=== PATIENT | female | born 1960 | race Caucasian/White ===

== ENCOUNTER 2025-04-08 14:44 | Emergency (ER) | payer MEDICARE, SELFPAY ==
[2025-04-08] VITALS (7 sets, daily range): BP systolic 141–173; BP diastolic 84–103; PULSE 72–77; RESP 16–18; TEMP 36.9; O2SAT 95–100; BMI 26.6
--- NOTE | 2025-04-08 14:46 | CTR_ITS ---
PROCEDURE INFORMATION: Exam: CT Head Without Contrast Exam date and time: 04/08/2025 3:44 PM Age: 64 years old Clinical indication: Injury or trauma; Fall; Blunt trauma (contusions or hematomas); Without loss of consciousness; Injury date: 04-08-25; Injury details: Fell off of horse; Pain in neck, did not hit head TECHNIQUE: Imaging protocol: Computed tomography of the head without contrast. Radiation optimization: All CT scans at this facility use at least one of these dose optimization techniques: automated exposure control; mA and/or kV adjustment per patient size (includes targeted exams where dose is matched to clinical indication); or iterative reconstruction. COMPARISON: No relevant prior studies available. RADIATION DOSE METRICS: Total DLP (mGy-cm): 1069.68 FINDINGS: Brain: There are mild periventricular and subcortical lucencies consistent with chronic microvascular ischemic changes.The hendrix-white differentiation is maintained. No hemorrhage. No edema. Cerebral ventricles: No ventriculomegaly. Paranasal sinuses: Visualized sinuses are unremarkable. No fluid levels. Mastoid air cells: Visualized mastoid air cells are well aerated. Bones: Unremarkable. No acute fracture. Soft tissues: Unremarkable. CT/CT head wo con* [id number] IMPRESSION: No acute intracranial abnormality. Chronic microvascular ischemic changes.
--- NOTE | 2025-04-08 14:46 | CTR_ITS ---
PROCEDURE INFORMATION: Exam: CT Cervical Spine Without Contrast Exam date and time: 04/08/2025 3:48 PM Age: 64 years old Clinical indication: Injury or trauma; Fall; Blunt trauma; Injury date: 04-08-25; Injury details: Fell off of horse today; Neck pain TECHNIQUE: Imaging protocol: Computed tomography of the cervical spine without contrast. Radiation optimization: All CT scans at this facility use at least one of these dose optimization techniques: automated exposure control; mA and/or kV adjustment per patient size (includes targeted exams where dose is matched to clinical indication); or iterative reconstruction. COMPARISON: CT head wo con* [id number] 04/08/2025 3:44 PM RADIATION DOSE METRICS: Total DLP (mGy-cm): 194.07 FINDINGS: Bones: Multilevel degenerative disc disease.There is multilevel uncovertebral and facet hypertrophy with neural foramina narrowing. No acute fracture. Lungs: Lung apices are normal. Soft tissues: Unremarkable. CT/CT cervical spin wo con* [id number] IMPRESSION: No acute cervical spine fracture.
--- NOTE | 2025-04-08 14:46 | XR_ITS ---
WS: [id number] Exam: XR chest 1V portable [id number] Date/Time of Exam: 04/08/2025 3:04 PM Reason For Exam: Trauma The lungs are fully inflated and clear. Normal cardiomediastinal silhouette. No pleural effusions. Displaced midshaft fracture of the LEFT humerus with the bucf-je-epsh apposition. No other bony injury. XR/XR chest 1V portable [id number] IMPRESSION: 1. No acute cardiopulmonary finding. 2. Acute midshaft fracture of the LEFT humerus with heqr-az-exhn apposition at the fracture site.
--- NOTE | 2025-04-08 14:55 | W.ED.GENADLT ---
HPI - General Adult General: Chief complaint: Extremity Injury, Upper Stated complaint: Fell from Horse Time Seen by Provider: 04/08/25 14:45 History of Present Illness: 64-year-old female presents to the emergency room after a fall from horse. States she has severe pain in her left upper arm. She fell she does not recall everything that happened but she was able to stand up and walk immediately after falling. No neck pain she does not believe she fully lost consciousness. She is complaining of some mild discomfort at her left hip. She denies any chest or abdominal pain. Patient has an obvious deformity of the left humerus Associated symptoms: Deny chest pain, dyspnea or rash Related Data Home Medications ?Medication ?Instructions ?Recorded ?Confirmed duloxetine 20 mg capsule,delayed 20 mg PO DAILY 04/08/25 04/08/25 release meloxicam 15 mg tablet 15 mg PO QPM 04/08/25 04/08/25 omeprazole 20 mg capsule,delayed 20 mg PO DAILY 04/08/25 04/08/25 release prednisone 10 mg tablet 10 mg PO DAILY 04/08/25 04/08/25 tolterodine 2 mg capsule,extended 2 mg PO DAILY 04/08/25 04/08/25 release 24 hr zolpidem 5 mg tablet 5 mg PO BEDTIME 04/08/25 04/08/25 Previous Rx's ?Medication ?Instructions ?Recorded hydrocodone 5 mg-acetaminophen 325 1 tab PO Q6H PRN pain #20 tabs 04/08/25 mg tablet Allergies Allergy/AdvReac Type Severity Reaction Status Date / Time codeine Allergy ADR-Abdominal Verified 04/08/25 14:50 Pain Sulfa (Sulfonamide Allergy ALGY-Conges Verified 04/08/25 14:50 Antibiotics) sasha Review of Systems Const: Denies: fever(s) or chills Card: Denies: chest pain Resp: Denies: dyspnea GI: Denies: abdominal pain : Denies: dysuria, urinary frequency or urinary urgency Musc: Denies: neck pain or back pain Skin/Breast: Denies: rash Physical Exam Const: GENERAL APPEARANCE: cooperative ORIENTATION/CONSCIOUSNESS: Yes awake, Yes oriented to person, Yes oriented to place and Yes oriented to time HENMT: COMMON NORMALS: normocephalic, atraumatic and hearing grossly normal bilaterally HEAD & SCALP: normocephalic and atraumatic Resp: COMMON NORMALS: normal respiratory effort, No retractions, No use of accessory muscles and clear to auscultation bilaterally AUSCULTATION: clear to auscultation bilaterally Cardio: COMMON NORMALS: regular rate, regular rhythm and No murmurs present (Cardio) RATE: regular rate RHYTHM: regular rhythm GI: COMMON NORMALS: Soft to palpation and No hepatosplenomegaly present AUSCULTATION: Yes normoactive bowel sounds PALPATION: Yes Soft to palpation, No Tenderness to palpation present (GI), No Guarding due to palpation present (GI) and Yes No hepatosplenomegaly present Extremity: OTHER: Obvious deformity of the left mid proximal humerus. Left upper extremity is neurovascularly intact good pulses. Normal sensation able to move at the wrist and the fingers. No laceration in the upper arm no signs of an open fracture Neuro: SENSORIUM/ORIENTATION: Yes oriented to person, Yes oriented to place and Yes oriented to time Skin: COMMON NORMALS: no rashes or lesions noted GENERAL SKIN EXAM: no rashes or lesions noted Procedures Orthopedic Fracture Reduction Fracture #1: Time Out Performed: Yes Side: left Fracture Reduction Location: humerus Technique: direct manipulation Post Reduction X-rays Demonstrate: acceptable reduction Post-reduction neuro exam: intact Post-reduction vascular exam: intact Splint Applied: Yes Patient Tolerated Procedure: well and no complications Procedural Sedation Indication: fracture/dislocation reduction ASA Class: I Preparation: conveyor monitor applied, pulse oximeter, supplemental O2 applied, suction/airway equipment at bedside and IV secured Fentanyl: IV Fentanyl dose (mcg): 50 IV Etomidate dose (mg): 20 Additional Comments: Started procedure time 1716 . End procedure time 1732. Course Vital Signs: Vital signs: Vital Signs Temperature 98.4 F 04/08/25 14:46 Pulse Rate 75 04/08/25 18:15 Respiratory Rate 16 04/08/25 18:15 Blood Pressure 141/84 04/08/25 18:15 Pulse Oximetry 95 04/08/25 18:15 Oxygen Delivery Me thod Room Air 04/08/25 17:33 [facility] - General Adult Medical Decision Making Conscious sedation with reduction of angulation of fracture of the humerus neurovascular intact after reduction see notes. Discussed Dr. Spangler who is on-call he recommended coaptation splint with sling and follow-up in orthopedic office. Referred to case management with pain medications. Lab Data 04/08/25 15:26 04/08/25 15:26 Radiology Impressions Cervical Spine CT 04/08/25 14:46 IMPRESSION: No acute cervical spine fracture. Chest X-Ray 04/08/25 14:46 IMPRESSION: 1. No acute cardiopulmonary finding. 2. Acute midshaft fracture of the LEFT humerus with tono-ib-xicr apposition at the fracture site. Head CT 04/08/25 14:46 IMPRESSION: No acute intracranial abnormality. Chronic microvascular ischemic changes. Humerus X-Ray 04/08/25 17:15 IMPRESSION: Closed reduction and splint placement as described based on 1 lateral view. Laboratory Results WBC 12.32 10^3/uL (3.29-11.43) H 04/08/25 15: RBC 3.88 10^6/uL (3.85-5.65) 04/08/25 15: Hgb 11.60 g/dL (11.27-16.99) 04/08/25 15: Hct 37.0 % (36-47) 04/08/25 15: MCV 95.4 fl (85-98) 04/08/25 15: MCH 29.9 pg (27-33) 04/08/25 15: MCHC 31.4 g/dL (30-55) 04/08/25 15: RDW 13.4 % (12.1-15.1) 04/08/25 15: Plt Count 274 10^3/cmm (157-399) 04/08/25 15: MPV 9.5 fL (7.4-10.4) 04/08/25 15: Neut % (Auto) 82.1 % 04/08/25 15: Lymph % (Auto) 11.0 % 04/08/25 15: [place] % (Auto) 5.0 % 04/08/25 15: Eos % (Auto) 0.2 % 04/08/25 15: Baso % (Auto) 0.5 % 04/08/25 15: Neut # (Auto) 10.11 10^3/uL (1.8-7.7) H 04/08/25 15: Lymph # (Auto) 1.4 10^3/uL (0.8-4.8) 04/08/25 15: [place] # (Auto) 0.6 10^3/uL (0.2-0.9) 04/08/25 15:26 Eos # (Auto) 0.0 10^3/uL (0.0-0.8) 04/08/25 15:26 Baso # (Auto) 0.1 10^3/uL (0.0-0.1) 04/08/25 15:26 Nucleated RBC % (auto) 0 % 04/08/25 15: Nucleated RBCs # 0.0 /100WBC 04/08/25 15:26 Sodium 139 mmol/L (136-145) 04/08/25 15:26 Potassium 3.8 mmol/L (3.5-5.1) 04/08/25 15: Chloride 102 mmol/L (98-107) 04/08/25 15: Carbon Dioxide 21 mmol/L (22-29) L 04/08/25 15:26 Anion Gap 19.8 (5-19) H 04/08/25 15:26 BUN 23 mg/dL (8-23) 04/08/25 15:26 Creatinine 1.1 mg/dL (0.5-0.9) H 04/08/25 15:26 GFR Calculation 49.7 mL/min (90-130) L 04/08/25 15: Glucose 110 mg/dL (65-115) 04/08/25 15:26 Calculated Osmolality 292 mOsm/kg (285-295) 04/08/25 15: Calcium 9.6 mg/dL (8.5-10.5) 04/08/25 15: Total Bilirubin 0.2 mg/dL (0.15-1.2) 04/08/25 15:26 AST 32 U/L (0-32) 04/08/25 15:26 ALT 20 U/L (0-33) 04/08/25 15:26 Alkaline Phosphatase 83 U/L (35-105) 04/08/25 15:26 Total Protein 8.1 g/dL (6.6-8.7) 04/08/25 15:26 Albumin 4.5 g/dL (3.5-5.2) 04/08/25 15: Globulin 3.6 g/dL (1.3-4.6) 04/08/25 15:26 All radiology interpretation(s) finalized by discharge Discharge Plan Discharge Patient Disposition: Home Clinical Impression: Fracture of humerus Qualifiers: Encounter type: initial encounter Humerus Location: shaft Fracture type: closed Fracture morphology: transverse Fracture alignment: displaced Laterality: left Qualified Code(s): S42.322A - Displaced transverse fracture of shaft of humerus, left arm, initial encounter for closed fracture Condition: Stable Prescriptions: New hydrocodone-acetaminophen 5-325 mg tablet 1 tab PO Q6H PRN (Reason: pain) Qty: 20 0RF No Action tolterodine 2 mg capsule,extended release 24hr 2 mg PO DAILY prednisone 10 mg tablet 10 mg PO DAILY meloxicam 15 mg tablet 15 mg PO QPM omeprazole 20 mg capsule,delayed release(DR/EC) 20 mg PO DAILY zolpidem 5 mg tablet 5 mg PO BEDTIME duloxetine 20 mg capsule,delayed release(DR/EC) 20 mg PO DAILY Discharge Orders: Discharge ED (Routine); Ordered 04/08/25 Ordered By: Jose Ramon Olivier Patient Instructions: Opioid Safety, Pain Management, Patient Portal & [place] Instructions Activity Restrictions/Additional Instructions: Thank you for choosing [facility] for your healthcare needs today. It is very important that you follow up as instructed or that you return to the Emergency Department should you have concerns or if your condition changes or worsens in any way. Emergency department visits are focused on emergent conditions, in some cases you may require further evaluation on an outpatient basis. You were seen in the emergency room with complaints of left arm pain after a fall you did have a fracture of your humerus this likely will need further treatment by orthopedics. We conferred with orthopedics the fracture was reduced and placed in a splint you should leave the arm in the splint and the sling until you see the orthopedic physician. You are given pain medications to discharge home on if you have uncontrolled pain or further problems return to the emergency room. (Please note that included in your discharge packet is information concerning opioid safety and pain management. This information is given to all patients were discharged from the ER regardless of their discharge diagnosis or the medicines they usually take or are prescribed.) Print Language: Ghanaian Coding Level of Care Code ED Rivet Flunky for Madelyn Ellison
[2025-04-08] MEDS: fentaNYL 50 mcg/mL INJ 2mL IVP ×2 (15:01→17:34)
--- NOTE | 2025-04-08 15:09 | XR_ITS ---
WS: [id number] Exam: [place] [id number] Date/Time of Exam: 04/08/2025 3:09 PM Reason For Exam: trauma DLP: There is a displaced midshaft fracture of the LEFT humerus. There is significant medial angulation of the distal fragment with [id number]-dk-[id number] apposition. An additional hairline fracture nondisplaced is noted in the upper humeral metaphysis. Deformity of the soft tissues. XR/[place] [id number] IMPRESSION: 1. Displaced angulated midshaft fracture of the LEFT humerus. Additional nondis placed hairline fracture of the upper metaphysis of the humerus.
[2025-04-08 15:48] LABS: Hematocrit 37.0 % (36-47); Hemoglobin 11.60 g/dL (11.27-16.99); Mean Corpuscular HGB Conc 31.4 g/dL (30-55); Mean Corpuscular Hemoglobin 29.9 pg (27-33); Mean Corpuscular Volume 95.4 fl (85-98); Nucleated Red Blood Cells % 0 %; Platelet Count 274 10^3/cmm (157-399); Red Blood Count 3.88 10^6/uL (3.85-5.65); White Blood Count 12.32 10^3/uL (3.29-11.43)
[2025-04-08 16:05] LABS: Alanine Aminotransferase 20 U/L (0-33); Albumin Level 4.5 g/dL (3.5-5.2); Alkaline Phosphatase 83 U/L (35-105); Anion Gap 19.8 (5-19); Aspartate Amino Transferase 32 U/L (0-32); Blood Urea Nitrogen 23 mg/dL (8-23); Calcium 9.6 mg/dL (8.5-10.5); Carbon Dioxide 21 mmol/L (22-29); Chloride 102 mmol/L (98-107); Creatinine Clr Calc Pharmacy 48.4003; Globulin 3.6 g/dL (1.3-4.6); Glucose 110 mg/dL (65-115); Osmolality Calculated 292 mOsm/kg (285-295); Potassium 3.8 mmol/L (3.5-5.1); Sodium 139 mmol/L (136-145); Total Protein 8.1 g/dL (6.6-8.7)
--- NOTE | 2025-04-08 17:15 | XRR_ITS ---
PROCEDURE INFORMATION: Exam: XR Left Humerus Exam date and time: 04/08/2025 5:16 PM Age: 64 years old Clinical indication: Other: Post reduction TECHNIQUE: Imaging protocol: Radiologic exam of the left humerus. Views: 2 or more views. Total images: 457 COMPARISON: 1. [place] [id number] 04/08/2025 3:[address] cervical spin wo con* [id number] 04/08/2025 3:48 PM 3. CR XR chest 1V portable [id number] 04/08/2025 3:06 PM FINDINGS: Bones/joints: Lateral projection (only) demonstrates left mid humeral shaft short oblique fracture with improved alignment and decreased angulation status post closed reduction and splint placement. Soft tissues: Soft tissues are for the most part obscured by the splint. XR/[place] [id number] IMPRESSION: Closed reduction and splint placement as described based on 1 lateral view.
[2025-04-08] MEDS: etomidate 2 mg/mL INJ SDV 10 mL 10 MG IVP (17:18)
[2025-04-08] MEDS: ondansetron 2 mg/ML SDV 2 mL 4 MG IVP (17:32)
[2025-04-08] MEDS: HYDROcodone-acetaminophen 5-325 mg Tablet 2 TAB PO (18:32)
--- NOTE | 2025-04-09 07:23 | DCPLANNER ---
Message sent to Ortho
== END 2025-04-08 18:17 | disposition home or self-care (01) ==
PROVIDERS: Emergency Provider Family Medicine
DX: S42.322A Displaced transverse fracture of shaft of humerus, left arm, initial encounter for closed fracture (principal); V80.010A Animal-rider injured by fall from or being thrown from horse in noncollision accident, initial encounter
CPT/HCPCS: 24505; 29125; 36415; 70450; 71045; 72125; 73060; 80053; 85025; 94799; 96361; 96374; 96375; 99152; 99285; 99291; A4565; J0780; J2405; J3010; J3490; J7050; J9999

== ENCOUNTER → 2025-04-11 11:15 | Outpatient (BNVA) | payer MEDICARE, SELFPAY | PROVIDERS: Visit Provider Student in an Organized Health Care Education/Training Program | DX: S42.302A Unspecified fracture of shaft of humerus, left arm, initial encounter for closed fracture (principal); V80.010A Animal-rider injured by fall from or being thrown from horse in noncollision accident, initial encounter | CPT/HCPCS: 73060; 99204 ==

== ENCOUNTER → 2025-04-16 10:06 | Outpatient (BNVA) | payer MEDICARE, SELFPAY | PROVIDERS: Visit Provider Student in an Organized Health Care Education/Training Program | DX: S42.302A Unspecified fracture of shaft of humerus, left arm, initial encounter for closed fracture (principal); X58.XXXA Exposure to other specified factors, initial encounter; Z46.89 Encounter for fitting and adjustment of other specified devices; S42.322D Displaced transverse fracture of shaft of humerus, left arm, subsequent encounter for fracture with routine healing; X58.XXXD Exposure to other specified factors, subsequent encounter | CPT/HCPCS: 73060 ==

== ENCOUNTER 2025-04-16 13:51 | Outpatient (CLI) | payer MEDICARE, SELFPAY | END 2025-04-16 13:52 | disposition home or self-care (01) | LOC: SPT 13:52 | PROVIDERS: Visit Provider Student in an Organized Health Care Education/Training Program | DX: Z46.89 Encounter for fitting and adjustment of other specified devices (principal); S42.322D Displaced transverse fracture of shaft of humerus, left arm, subsequent encounter for fracture with routine healing; X58.XXXD Exposure to other specified factors, subsequent encounter | CPT/HCPCS: L3980 ==

== ENCOUNTER → 2025-04-30 14:13 | Outpatient (BNVA) | payer MEDICARE, SELFPAY | PROVIDERS: Visit Provider Student in an Organized Health Care Education/Training Program | DX: S42.302A Unspecified fracture of shaft of humerus, left arm, initial encounter for closed fracture (principal); X58.XXXA Exposure to other specified factors, initial encounter | CPT/HCPCS: 73060; 99213 ==

== ENCOUNTER → 2025-05-21 14:04 | Outpatient (BNVA) | payer MEDICARE, SELFPAY | PROVIDERS: PCP Family Medicine; Visit Provider Student in an Organized Health Care Education/Training Program | DX: S42.302A Unspecified fracture of shaft of humerus, left arm, initial encounter for closed fracture (principal); X58.XXXA Exposure to other specified factors, initial encounter | CPT/HCPCS: 73060; 99214 ==

== ENCOUNTER 2025-06-10 06:20 | Day surgery (SDC) | payer MEDICARE, SELFPAY ==
[2025-06-10] VITALS (19 sets, daily range): BP systolic 86–134; BP diastolic 46–83; PULSE 64–112; RESP 14–20; TEMP 36.1–36.4; O2SAT 95–100; BMI 26.7
[2025-06-10] MEDS: acetaminophen 1,000 MG/100 ML PIGGYBACK 400 MG IV (06:53)
--- NOTE | 2025-06-10 07:06 | W.PM.OPSUD ---
Surgery/Procedure H&P Update DATE OF PROCEDURE: June 10, 2025 DATE H&P PERFORMED: 05/21/25 H&P UPDATE INFORMATION: I have reviewed H&P completed within last 30 days, I have examined patient prior to procedure and No changes to prior documentation CHANGES TO PREVIOUS DOCUMENTATION: Please refer to anesthesia preoperative evaluation for heart and lung findings PREOP DIAGNOSIS: Left midshaft humerus fracture PRIMARY INDICATION FOR PROCEDURE: Left midshaft humerus fracture PLANNED PROCEDURE: Operation Date: 06/10/25 07:50 Proposed Procedures p ORIF Humerus ORIF Humerus Fx Mid Shaft Left(Left) - Luis M Spangler DO
--- NOTE | 2025-06-10 07:07 | ANES.PREANE2 ---
Pre-Anesthetic Assessment Height/Weight: Height 1.63 m Weight 70.76 kg Temp Pulse Resp BP Pulse Ox O2 Del Method 97.0 F L 78 18 120/80 97 Room Air 06/10/25 06:32 06/10/25 06:32 06/10/25 06:32 06/10/25 06:32 06/10/25 06:32 06/10/25 06:32 Preop Diagnosis: Left midshaft humerus fracture Operation Date: 06/10/25 07:50 Proposed Procedures p ORIF Humerus ORIF Humerus Fx Mid Shaft Left(Left) - Luis M Portage, DO Familial anesthetic complications: None Was Beta Eliezer taken within 24 hours: N/A Was Clonidine taken within 24 hours: N/A Last intake: Intake Last Liquid Date 06/09/25 Last Liquid Time 21:00 Last Solid Date 06/09/25 Last Solid Time 21:00 Social Alcohol (cocktail a night) and No alcohol Exam alert, oriented x 3, clear to auscultation bilaterally and regular rate & rhythm Airway Mallampati: Class I Dentition: full GI Gastroesophageal Reflux Disease Anesthetic Plan ASA status: 2 Anesthesia: General and Regional (specify below) (post op prn) Risk of > 500 ml blood loss (7ml/kg in children): No Medications/Allergies Home Medications ?Medication ?Instructions ?Recorded ?Confirmed ?Last Taken ?Type duloxetine 20 mg capsule,delayed 20 mg PO DAILY 04/08/25 06/09/25 06/06/25 History release meloxicam 15 mg tablet 15 mg PO QPM 04/08/25 06/09/25 06/06/25 History omeprazole 20 mg capsule,delayed 20 mg PO DAILY 04/08/25 06/09/25 06/09/25 History release prednisone 10 mg tablet 10 mg PO DAILY PRN joint pain 04/08/25 06/09/25 05/26/25 History tolterodine 2 mg capsule,extended 2 mg PO DAILY 04/08/25 06/09/25 06/09/25 History release 24 hr zolpidem 5 mg tablet 10 mg PO BEDTIME 04/08/25 06/09/25 06/08/25 History left shoulder ultra sling #1 ea 04/11/25 06/09/25 Unknown Rx Left Clam Shell Brace #1 ea 04/16/25 06/09/25 Unknown Rx calcium carbonate 500 mg PO BID 06/09/25 06/09/25 06/09/25 History efpiwwajihzn-wkfifzit-cpliew 1 tab PO DAILY 06/09/25 06/09/25 06/09/25 History tablet (Multivitamin 50 Plus tablet) Allergies Allergy/AdvReac Type Severity Reaction Status Date / Time codeine Allergy ADR-Abdominal Verified 06/09/25 12:08 Pain Sulfa (Sulfonamide Allergy ALGY-Conges Verified 06/09/25 12:08 Antibiotics) sasha Current Medications Generic Name Dose Route Start Last Admin Trade Name Freq PRN Reason Stop Dose Admin Sodium Chloride 1,000 mls @ 30 mls/hr 06/10/25 06:30 06/10/25 06:54 Sodium Chloride 0.9% IV 06/11/25 06:29 30 mls/hr .Q24H JOSEPH Administration PFSH Anesthesia Social History Smoking and tobacco/nicotine status: former use of tobacco/nicotine
[2025-06-10] MEDS: ceFAZolin 2,000 MG in sodium chloride 0.9% (plus) 50 ML 100 MG IV (08:14)
--- NOTE | 2025-06-10 09:40 | SUR.OPER ---
0982 UPDATED PATIENT FAMILY IN WAITING AREA
--- NOTE | 2025-06-10 11:00 | SUR.OPER ---
1100 UPDATED FAMILY IN WAITING AREA
[2025-06-10] MEDS: fentaNYL 50 mcg/mL INJ 2mL IVP (11:24)
[2025-06-10] MEDS: ondansetron 2 mg/ML SDV 2 mL 4 MG IVP ×2 (12:14→12:28)
--- NOTE | 2025-06-10 12:27 | ANES.PROC ---
Anesthesia Procedures Procedure/Date: 06/10/25 Nerve Block ^: Nerve Block 1: Main Anesthesia: general anesthesia Time Out Performed: Yes Consent: requested by attending/covering physician, from patient, from other, risks and benefits reviewed and patient agrees to proceed Laterality: Left Nerve block location: supraclavicular (L) Anesthesia monitors applied: pulse oximetry, EKG, BP cuff and oxygen Nerve block position: semi sitting Anesthetic Used: ropivicaine 0.5% (30 ml) and with decadron (4 mg) Ultrasound used to: recognize landmarks, visualize and ID brachial plexus and in supraclavicular region Nerve Stimulator Used?: No Interscalene/Femoral BLK: 4 stimuplex 21 g needle used for position and inplane approach, visualize local anesthetic spread and no vascular puncture identified Injection: neg aspiration of heme Patient Tolerated Procedure: well Complications: none Additional Comments: diagnosis: post op pain
--- NOTE | 2025-06-10 12:57 | XR_ITS ---
WS: [id number] Left arm and humerus, 2 views, C-arm fluoroscopy views, 06/10/2025 Clinical Data: OR PIC, Comparison: Left arm and humerus, 05/21/2025 Findings: Dr. Spangler performed internal fixation of the mid left humeral fracture. XR/[place] [id number] Impression: Internal fixation of mid left humeral fracture.
[2025-06-10] MEDS: metoclopramide 5 mg/mL SDV 2 mL 10 MG IVP ×2 (13:03→14:39)
[2025-06-10] MEDS: promethazine 25 mg/mL SDV 1 mL 12.5 MG IM (15:12)
--- NOTE | 2025-06-10 15:45 | ANE.PACU2 ---
Inpatient post-anesthesia follow up: Airway intact: Yes Vital signs: Temperature 97.3 F Pulse Rate 78 Respiratory Rate 17 Blood Pressure 127/68 Pulse Oximetry 99 Oxygen Delivery Me thod Room Air Oxygen Flow Rate Fraction of Inspir ed Oxygen Hydration adequate: Yes Nausea and vomiting: Yes (received zofran, reglan, and phenergan) Pain level: 1 Mental status: Baseline
--- NOTE | 2025-06-10 16:21 | P.BOP_ITS ---
Date of Procedure: 06/10/2025 Surgeon: Luis M Spangler DO Concaving Machine Operator(s): None Procedure(s) performed: Left humeral shaft fracture open reduction internal fixation Findings of the procedure(s): Patient underwent procedure as planned without issues or complications taken to recovery stable condition. Estimated blood loss: 50 mL Specimen(s) removed: Fracture immature callus and scar tissue removed but not sent for specimen Post-operative diagnosis: Left humerus shaft fracture
--- NOTE | 2025-06-10 16:22 | P.OP_ITS ---
Operative Report Date of procedure: June 10, 2025 Pre-op diagnosis: Left midshaft humerus fracture Post-op diagnosis: Same Post-op findings: See operative report narrative Procedure done: Left midshaft humerus fracture open reduction internal fixation Implants: [place] 8 hole 5.0 mm large frag plate narrow Combination of locking and nonlocking screws Kandice DBM plus putty with cancellous chips Surgeon: Luis M Spangler DO Tree Killer: None Anesthesia: General Estimated blood loss: 50mL none IV fluids: 1300 mL Complications: None Findings: See operative report narrative Condition: stable Disposition: same day Brief History: Patient a pleasant 64-year-old female who sustained a left midshaft humerus fracture we tried to treat this with a coaptation splinting and subsequently functional brace however she after 6 weeks still had motion at the fracture site and still continues to have motion at the fracture site and being now 8 weeks out continued motion we talked about her options and through shared decision making check to pursue surgical intervention for left humerus open reduction internal fixation. We detailed the ins and outs procedure the risk benefits complication alternatives with surgical nonsurgical treatment options. Und erstanding risk of surgery patient like to proceed with surgical invention. All questions answered at this time. Procedure: Patient was seen evaluate in the preoperative holding area. Consent was reviewed and signed with patient. Correct extremity was then subsequently marked patient was then seen evaluated by anesthesia once cleared for surgery patient was taken back to the operative suite patient was transported onto the OR table in supine position all bony prominences well-padded patient appropriate secured to the bed. Patient then subsequently underwent anesthesia per the anesthesia apartment once properly anesthetized the left upper extremity had an armboard applied radiolucent to the left upper extremity. We then turned to bed 90 degrees and brought the C arm from the head superiorly and confirmed to have appropriate visualization for x-rays once confirmed left upper extremity was then prepped and draped standard orthopedic fashion. Final timeout performed. Patient received appropriate preoperative and antibiotics. This point in time marked out appropriate landmarks and proceeded with a standard distal extension of the deltopectoral interval proximally and extended into an anterolateral approach to the left humerus standard anterolateral approach was performed as I subsequently then incised the fascia of the bicep a nd moved and mobilized the bicep medially. I maintain exact hemostasis throughout the dissection. I then subsequently before identifying fracture site and once I immediately encountered the brachialis I then subsequently focused my attention towards finding and identifying the radial nerve distally. I went through the standard interval of the brachialis and brachial radialis distally and identified the nerve. This was then dissected out all the way up to the fracture site and pierced in the lateral intermuscular septum going posteriorly. This was then a vessel loop was loosely placed around this just for identification purposes throughout the case. At this point in time once this was identified I then subsequently due to the adherence and scar tissue built-up from the brachialis and then subsequently split the brachialis at its dual innervation site and maintain exact hemostasis through this coming down directly over where the fracture site had adhered into some of the brachialis muscle belly. At this point in time I then subsequently subperiosteally elevated once again make sure nerve was protected throughout this case by my real estate administrative assistant and then subsequently periosteal elevated on the medial face of the humerus which appeared to be satisfactory positioning for the plate for final fixation. At this point in time I then subsequently mobilized and then identified the fractu re site this had dense fibrous scar tissue but no appreciable bony union and motion was noted at the fracture site. At this point in time I subsequently meticulously utilized a rongeur and curette and curette out the entirety of the fracture sites on both ends with care staying on bone and removing just fibrous tissue. At this point in time I then utilized a curette to roughen up the edges and then attempted to try and achieve an reduction for a lag screw however this was short oblique in nature and the edges of the fragment were now rounded off and unable to have a good lag screw fixation as a result plan was for plating. I then at this standpoint identified the medial face of both the proximal and distal fragments and was able to align these for a good reduction was confirmed with fluoroscopic imaging. At this point in time I then subsequently identified the appropriate plate which an 8 hole 5.0 mm Kandice narrow plating fit perfectly on patient's bone. At this point in time I laid this on appropriate position and identified satisfactory plate placement. At this point time the set good on the medial face of the humerus. I then subsequently placed and drilled a cortical screw on the plate proximally to get plate to bone interface this was kept on the center aspect of the bone and then I subsequently used a reduction clamp to hold the plate distally in appropriate position and then subsequently eccentrically drilled and compressed through the fracture site on the distal fracture fragment to get bone to plate interface. At this point in time I brought in the fluoroscopic imaging to confirm appropriate plate placement as well as good screw position and satisfactory alignment for fracture healing. At this point time was satisfied with my reduction. I subsequently then placed 2 more additional locking screws that were subsequently drilled measured and placed appropriate length locking screws in the proximal fragment and 3 more additional locking screws in the distal fragment with a combination of 4 screws distal and 3 screw fixation proximal.. Patient's arm was then taken through satisfactory rigid fixation and satisfactory reduction maintenance of reduction with plate fixation. At this point time was satisfied and took final fluoroscopic imaging. I then thoroughly irrigated out the wound bed. Given this was 8 weeks out fracture as well as patient's age I then subsequently did place [place] DBM putty with cancellous chips circumferentially around the fracture site just to augment for fracture healing. At this point in time removed vessel loop and again confirmed satisfactory protection of the radial nerve throughout the procedure. I then subsequently reapproximated the split in the brachialis with 0 Vicryl suture and then closed the deep fascial layer with 0 Vicryl suture interrupted closed subcutaneous tissue with 2-0 Vicryl suture and then closed the skin with deepali. This was then dressed with Xeroform 4 x 4's ABD Curlex and an Dawood bandage and patient was placed in a sling patient was then awakened from anesthesia taken recovery in stable condition. Disposition: Patient taken recovery in stable condition, patient tolerated procedure well with any issues or complications. Patient was then assessed in PACU and was found to have satisfactory neurovascular functioning to the left upper extremity patient was able to form all cardinal hand movements of AIN/PIN/radial/ulnar/median nerve Alls intact as well as sensation intact light touch distally. Distal pulses are palpable radial pulse 2+ fingertips warm well-perfused brisk cap refill less than 2 seconds at this point in time patient is okay to receive a postoperative block from the anesthesia department just to help with postoperative pain. Patient will receive appropriate discharge directions again understands to be nonweightbearing to the operative extremity maintain sling she can come out for elbow range of motion and finger range of motion will follow-up in 2 weeks patient understands and agrees with current plan. All questions answered.
== END 2025-06-10 15:45 | disposition home or self-care (01) ==
PROVIDERS: PCP Family Medicine; Visit Provider Student in an Organized Health Care Education/Training Program
PROC: (CPT 24515; principal; 2025-06-10 07:50)
DX: S42.302A Unspecified fracture of shaft of humerus, left arm, initial encounter for closed fracture (principal); X58.XXXA Exposure to other specified factors, initial encounter; K21.9 Gastro-esophageal reflux disease without esophagitis; Z87.891 Personal history of nicotine dependence
CPT/HCPCS: 24515; 73060; 76000; C1713; J0131; J0690; J1100; J1171; J1885; J2003; J2405; J2550; J2704; J2765; J2795; J3010; J3490; J7030; J9999